=== PATIENT | female | born 2000 | race Caucasian/White ===

== ENCOUNTER 2020-08-22 15:52 | Emergency (ER) | payer MEDICAID ==
[~2020-08-22] VITALS: Ht 165.1 cm; Wt 72.6 kg
[2020-08-22 16:02] VITALS: BP 120/74
== END 2020-08-22 17:10 | disposition home or self-care (01) ==
LOC: M.ERS 15:52
DX: S61.211A Laceration without foreign body of left index finger without damage to nail, initial encounter (principal); W45.8XXA Other foreign body or object entering through skin, initial encounter; Y93.89 Activity, other specified; Y92.89 Other specified places as the place of occurrence of the external cause; Y99.8 Other external cause status

== ENCOUNTER 2020-08-30 15:05 | Emergency (ER) | payer MEDICAID ==
[~2020-08-30] VITALS: Ht 165.1 cm; Wt 72.6 kg
[2020-08-30 15:28] VITALS: BP 122/68
== END 2020-08-30 15:28 | disposition home or self-care (01) ==
LOC: M.ERS 15:05
DX: S61.211D Laceration without foreign body of left index finger without damage to nail, subsequent encounter (principal); X58.XXXD Exposure to other specified factors, subsequent encounter

== ENCOUNTER 2020-11-10 16:09 | Emergency (ER) | payer MEDICAID ==
[~2020-11-10] VITALS: Ht 165.1 cm; Wt 69.4 kg
[2020-11-10 16:33] LABS: URINE BILIRUBIN NEGATIVE (Negative); URINE BLOOD 3+ (Negative); URINE CLARITY CLOUDY; URINE COLOR YELLOW; URINE GLUCOSE-RANDOM NEGATIVE (Negative); URINE KETONES NEGATIVE (Negative); URINE PROTEIN 2+ (Negative); URINE UROBILINOGEN 0.2 E.U./dl (0.2-1.0)
[2020-11-10 16:34] LABS: URINE LEUKOCYTES-REFLEX 2+ (Negative); URINE NITRITE-REFLEX POSITIVE (Negative)
[2020-11-10 16:48] LABS: ABSOLUTE LYMPHOCYTES 1.7 thou/uL (0.8-5.3); ABSOLUTE NEUTROPHILS 6.3 thou/uL (1.6-8.1); BASOPHILS 0.2 %; EOSINOPHILS 0.4 %; HEMATOCRIT 34.2 % (37.0-47.0); HEMOGLOBIN 11.4 gm/dL (12.0-15.0); LYMPHOCYTES 18.7 %; MCH 26.4 pg (26.0-34.0); MCHC 33.3 g/dL (28.0-37.0); MCV 79.4 fL (80.0-100.0); MONOCYTES 11.3 %; MPV 8.6 fl. (7.2-11.1); NUCLEATED RBCS 0 /100WBC; PLATELET COUNT* 258 thou/uL (150-400); POLYS 69.4 %; RBC 4.32 mil/uL (4.20-5.00); RDW-CV 15.7 % (10.5-14.5); WBC 9.1 thou/uL (4.0-11.0)
[2020-11-10 16:53] LABS: BACTERIA-REFLEX 1-9 Few /HPF (None Seen); CASTS None Seen /LPF (None Seen); CRYSTALS None Seen /LPF (None Seen); SQUAMOUS 0-3 Few /LPF (0-3); URINE RBC 3-10 Few /HPF (0-2); URINE WBC-REFLEX >25 Many /HPF (0-5)
[2020-11-10 16:56] LABS: CREATININE 0.9 mg/dL (0.6-1.3); POTASSIUM 3.6 mmol/L (3.5-5.1)
[2020-11-10 17:00] LABS: TOTAL BILIRUBIN 0.7 mg/dL (<0.1-1.0); TOTAL PROTEIN 7.5 g/dL (6.4-8.2)
[2020-11-10] MEDS ORDERED: NAPROSYN500 MG PO (17:51)
[2020-11-10] MEDS ORDERED: DICYCLOMINE HCL20 MG PO (17:51)
[2020-11-10] MEDS ORDERED: CEPHALEXIN500 MG PO (17:51)
[2020-11-10 18:09] VITALS: BP 96/54
== END 2020-11-10 18:10 | disposition home or self-care (01) ==
LOC: M.ERS 16:09
PROVIDERS: Nurse Practitioner Family
DX: N39.0 Urinary tract infection, site not specified (principal); N83.202 Unspecified ovarian cyst, left side; N83.201 Unspecified ovarian cyst, right side

== ENCOUNTER 2021-01-07 08:39 | Emergency (ER) | payer OTHER ==
[~2021-01-07] VITALS: Ht 165.1 cm; Wt 65.8 kg
[~2021-01-07 08:39] MED LIST: CEPHALEXIN500 MG PO; DICYCLOMINE HCL20 MG PO; NAPROSYN500 MG PO
[2021-01-07 08:55] VITALS: BP 114/76
[2021-01-07] MEDS ORDERED: PREDNISONE 20 M20 M1 PO (09:17)
[2021-01-07] MEDS ORDERED: ZPAK PO (09:17)
== END 2021-01-07 09:29 | disposition home or self-care (01) ==
LOC: M.ERS 08:39
DX: J06.9 Acute upper respiratory infection, unspecified (principal); Z90.89 Acquired absence of other organs